=== PATIENT | male | born 1995 | race African-American/Black ===

== ENCOUNTER 2016-10-24 06:44 | Emergency (ER) | payer OTHER ==
[~2016-10-24] VITALS: Ht 185.4 cm; Wt 90.7 kg
[2016-10-24] MEDS ORDERED: DEPAKOTE250 MG PO (06:53)
[2016-10-24] MEDS ORDERED: PHENOBARBITAL30 MG ORAL (06:53)
[2016-10-24] MEDS ORDERED: Cephalexin 500mg cap ORAL ONE (07:00)
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
[2016-10-24] MEDS ORDERED: KEFLEX500 MG ORAL (07:39)
[2016-10-24] MEDS ORDERED: CLOTRIMAZOLE15 GM TOPIC (07:39)
[2016-10-24 07:52] VITALS: BP 122/72
--- NOTE | 2016-10-24 11:41 | Diagnostic Imaging Report ---
Indication: Pain Comparison: None Findings: 3 views of the right foot were obtained. No acute fractures, malalignment, erosions or periostitis are identified. Bone mineralization is within normal limits. Soft tissues are unremarkable. Apparent metallic radiopaque foreign bodies are noted in the plantar aspect of the foot in the area of the first MTP joint. Impression: Radiopaque foreign bodies
== END 2016-10-24 07:53 | disposition home or self-care (01) ==
LOC: EMR 07:02
DX: B35.3 Tinea pedis (principal); L03.115 Cellulitis of right lower limb; Z88.2 Allergy status to sulfonamides
CPT/HCPCS: 99284